=== PATIENT | female | born 1985 | race African-American/Black ===

== ENCOUNTER 2017-03-28 13:59 | Emergency (ER) | payer MEDICAID ==
[~2017-03-28] VITALS: Ht 170.2 cm; Wt 78.0 kg
[~2017-03-28 13:59] MED LIST: IBUP800T24 PO
[2017-03-28 15:10] VITALS: BP 127/74
[2017-03-28] MEDS ORDERED: cefTRIAXone SOD 1,000 MG VL IM ONE (15:45)
[2017-03-28 16:14] LABS: Basophils # (auto) 0.1 uL; Basophils % (auto) 0.6 % (0.0-2.0); Eosinophils # (auto) 0.2 uL; Eosinophils % (auto) 2.7 % (0.0-7.0); Hemoglobin 11.6 g/dL (12.2-16.2); Lymphocytes # (auto) 2.5 uL; Lymphocytes % (auto) 29.3 % (10.0-50.0); Mean Corpuscular Hemoglobin 30.2 pg (28.0-32.0); Mean Corpuscular Volume 91.3 fL (80.0-100.0); Mean Platelet Volume 8.4 fL (6.9-10.8); Monocytes # (auto) 0.7 uL; Monocytes % (auto) 8.3 % (0.0-12.0); Neutrophils % (auto) 59.1 % (37.0-80.0); Platelet Count (auto) 318 10^3/uL (140-450); Red Cell Distribution Width 13.7 % (11.8-14.3); White Blood Cell 8.5 10^3/uL (4.4-10.8)
[2017-03-28 16:34] LABS: Urine Bilirubin Negative (Negative); Urine Blood 3+ /uL (Negative); Urine Color Yellow (Yellow); Urine Glucose Normal (Normal); Urine Ketone Negative (Negative); Urine Mucus FEW (None Seen); Urine Nitrite Negative (Negative); Urine RBC 13 /hpf (0 - 4); Urine Squamous Epithelial Cell FEW /hpf (<5); Urine Urobilinogen Normal (Negative); Urine pH 5.5 (5.0-8.0)
[2017-03-28 16:41] LABS: Albumin 3.8 g/dL (3.4-5.0); BUN/Creatinine Ratio 11.7; Bilirubin, Total 0.3 mg/dL (0.2-1.0); Calcium 8.9 mg/dL (8.5-10.1); Potassium 3.7 mmol/L (3.5-5.1); Total Protein 8.2 g/dL (6.4-8.2)
== END 2017-03-28 17:18 | disposition home or self-care (01) ==
LOC: ER 14:32
DX: S06.9X9A Unspecified intracranial injury with loss of consciousness of unspecified duration, initial encounter (principal); J03.90 Acute tonsillitis, unspecified; N39.0 Urinary tract infection, site not specified; W19.XXXA Unspecified fall, initial encounter; Y93.89 Activity, other specified; Y99.8 Other external cause status; Y92.89 Other specified places as the place of occurrence of the external cause
CPT/HCPCS: 36415; 70450; 80053; 80307; 81001; 81025; 85025; 96372; 99285; J0696

== ENCOUNTER 2017-06-18 12:21 | Emergency (ER) | payer MEDICAID ==
[~2017-06-18] VITALS: Ht 170.2 cm; Wt 81.6 kg
[2017-06-18 14:12] VITALS: BP 108/78
[2017-06-18] MEDS ORDERED: LIDOCAINE 1% HCL (LOCAL ANESTH.) INJ 20ML MDV IN ONE (15:00)
[2017-06-18] MEDS ORDERED: cefTRIAXone SOD 1,000 MG VL ONE (15:06)
[2017-06-18] MEDS ORDERED: cefTRIAXone SOD 1,000 MG VL IM ONE (15:15)
[2017-06-18] MEDS ORDERED: LIDOCAINE 1% HCL (LOCAL ANESTH.) INJ 20ML MDV IJ ONE (15:30)
== END 2017-06-18 15:40 | disposition home or self-care (01) ==
LOC: ER 12:21
DX: L02.416 Cutaneous abscess of left lower limb (principal); Z88.2 Allergy status to sulfonamides; Z79.899 Other long term (current) drug therapy
CPT/HCPCS: 10060; 96372; 99283; J0696

== ENCOUNTER 2018-04-03 05:20 | Emergency (ER) | payer MEDICAID ==
[~2018-04-03] VITALS: Ht 170.2 cm; Wt 83.9 kg
[2018-04-03 05:32] VITALS: BP 114/63
[2018-04-03] MEDS ORDERED: KETOROLAC TROMETH 60MG/2ML VIAL IM ONE (08:00)
== END 2018-04-03 08:12 | disposition home or self-care (01) ==
LOC: ER 05:20
DX: S39.012A Strain of muscle, fascia and tendon of lower back, initial encounter (principal); S46.911A Strain of unspecified muscle, fascia and tendon at shoulder and upper arm level, right arm, initial encounter; S76.011A Strain of muscle, fascia and tendon of right hip, initial encounter; W18.39XA Other fall on same level, initial encounter; Y93.89 Activity, other specified; Y99.8 Other external cause status; Y92.89 Other specified places as the place of occurrence of the external cause
CPT/HCPCS: 72131; 73030; 73700; 96372; 99284; J1885

== ENCOUNTER 2019-06-21 10:22 | Emergency (ER) | payer MEDICAID ==
[~2019-06-21] VITALS: Ht 170.2 cm; Wt 90.7 kg
[2019-06-21 13:43] VITALS: BP 126/84
== END 2019-06-21 13:47 | disposition home or self-care (01) ==
LOC: ER 10:22
DX: J06.9 Acute upper respiratory infection, unspecified (principal); R11.2 Nausea with vomiting, unspecified

== ENCOUNTER 2019-12-06 10:30 | Emergency (ER) | payer MEDICAID ==
[~2019-12-06] VITALS: Ht 170.2 cm; Wt 105.4 kg
[2019-12-06 10:42] VITALS: BP 126/84
[2019-12-06] MEDS ORDERED: KETOROLAC TROMETH 60MG/2ML VIAL IM ONE (11:45)
== END 2019-12-06 11:58 | disposition home or self-care (01) ==
LOC: ER 10:30
DX: S29.012A Strain of muscle and tendon of back wall of thorax, initial encounter (principal); X58.XXXA Exposure to other specified factors, initial encounter; Y93.89 Activity, other specified; Y92.89 Other specified places as the place of occurrence of the external cause; Y99.8 Other external cause status
CPT/HCPCS: 72070; 72100; 96372; 99284; J1885

== ENCOUNTER 2020-08-14 06:26 | Emergency (ER) | payer MEDICAID ==
[~2020-08-14] VITALS: Ht 170.2 cm; Wt 93.4 kg
[~2020-08-14 06:26] MED LIST changes: -IBUP800T24 PO; +IBUP800T27 PO
[2020-08-14] MEDS ORDERED: SODIUM CHLORIDE 0.9% 1,000 ML IV ONE (07:30)
[2020-08-14 07:47] LABS: Basophils # (auto) 0.1 10 ^3/uL (0-0.2); Basophils % (auto) 0.6 % (0.0-2.0); Eosinophils # (auto) 0.3 10 ^3/uL (0-0.8); Eosinophils % (auto) 2.6 % (0.0-7.0); Hematocrit 36.5 % (36.0-46.0); Hemoglobin 12.2 g/dL (12.2-16.2); Lymphocytes # (auto) 1.5 10 ^3/uL (0.4-5.4); Lymphocytes % (auto) 14.4 % (10.0-50.0); Mean Corpuscular Hgb Conc. 33.4 g/dL (32.0-36.0); Mean Corpuscular Volume 89.8 fL (80.0-100.0); Monocytes # (auto) 0.6 10 ^3/uL (0-1.3); Monocytes % (auto) 5.4 % (0.0-12.0); Neutrophils # (auto) 7.9 10 ^3/uL (1.6-8.6); Nucleated Red Blood Cells % 0.2 %; Platelet Count (auto) 334 10^3/uL (140-450); Red Blood Cells 4.07 10^6/uL (4.0-5.20); Red Cell Distribution Width 12.9 % (11.8-14.3); White Blood Cell 10.3 10^3/uL (4.4-10.8)
[2020-08-14 07:58] LABS: Urine Bacteria FEW /hpf (None Seen); Urine Blood Negative /uL (Negative); Urine Specific Gravity 1.002 (1.001-1.035); Urine WBC 2 /hpf (0 - 5)
[2020-08-14 08:07] LABS: Albumin 3.7 g/dL (3.4-5.0); Calcium 8.7 mg/dL (8.5-10.1); Potassium 4.2 mmol/L (3.5-5.1)
[2020-08-14 08:09] LABS: BUN/Creatinine Ratio 11.1
[2020-08-14 08:11] LABS: Bilirubin, Total 0.4 mg/dL (0.2-1.0); Total Protein 7.9 g/dL (6.4-8.2)
[2020-08-14 09:59] VITALS: BP 124/78
== END 2020-08-14 10:50 | disposition home or self-care (01) ==
LOC: ER 06:26
DX: Z34.91 Encounter for supervision of normal pregnancy, unspecified, first trimester (principal); Z3A.09 9 weeks gestation of pregnancy
CPT/HCPCS: 36415; 76805; 80053; 81001; 81025; 84702; 85025; 96360; 99284; J7030

== ENCOUNTER 2020-08-19 22:54 | Emergency (ER) | payer MEDICAID ==
[~2020-08-19] VITALS: Ht 170.2 cm; Wt 97.5 kg
[2020-08-19 23:58] LABS: Urine Bacteria FEW /hpf (None Seen); Urine Blood 1+ /uL (Negative); Urine Specific Gravity 1.011 (1.001-1.035); Urine WBC <1 /hpf (0 - 5)
[2020-08-20 00:05] VITALS: BP 140/75
== END 2020-08-20 03:59 | disposition home or self-care (01) ==
LOC: ER 22:54
DX: O20.8 Other hemorrhage in early pregnancy (principal); Z3A.10 10 weeks gestation of pregnancy
CPT/HCPCS: 36415; 76801; 81001; 81025; 84702

== ENCOUNTER 2025-01-30 08:10 | Inpatient (IN) | payer MEDICAID ==
[~2025-01-30] VITALS: Ht 167.6 cm; Wt 112.0 kg
[~2025-01-30 08:10] MED LIST changes: +IBUP-1456 PO; -IBUP800T27 PO
--- NOTE | 2025-01-30 08:26 | ED.PDOC ---
GI ASSESSMENT HPI Comments 40 year old female presents to the ED with a chief compliant of abdominal pain onset last night. Patient began experiencing lower abdominal pain radiating to back since last night. She describes the pain as sharp and constant, worsens with talking, movement and deep breaths. She is also experiencing intermittent chills, sweats. Denies any PMHx as well as nausea, vomiting, diarrhea, fever, hematemesis, dysuria, hematuria, vaginal discharge. No other symptoms or modifying factors present at this time. Chief Complaint: Abdominal Pain Time Seen by MD: 08:20 Primary Care Provider: DESIRAE Reviewed Notes: Medications, Allergies Allergies: Coded Allergies: Morphine (Verified Allergy, Unknown, 01/30/25) Sulfa Antibiotics (Verified Allergy, Unknown, 01/30/25) Home Meds Reported Medications Ibuprofen (Ibuprofen) 800 Mg Tab, 800 MG PO, MG 12/14/16 Information Source: Patient Mode of Arrival: Ambulatory Timing: Hours Duration: Since onset Prehospital treatment: None Quality: Sharp Vomitus: None Severity: Moderate Recent: None Recent Hx of: None Pain Location: Diffuse Modifying Factors: Nothing Associated sign and symptoms: Abdominal Pain Past Medical History PAST MEDICAL HISTORY: Denies Surgical History: APPLICATIONS TRAINER History: No Pertinent APPLICATIONS TRAINER History Family History Family History: Unknown, Unobtainable Social History Smoker: Non-Smoker Alcohol: Occasionally Drugs: Denies Drug Use Lives In: Home Constitutional: denies: chills, diaphoresis, fatigue, fever, malaise, sweats, weakness, others EENTM: denies: blurred vision, double vision, ear bleeding, ear discharge, ear drainage, ear pain, ear ringing, eye pain, eye redness, hearing loss, mouth pain, mouth swelling, nasal discharge, nose bleeding, nose congestion, nose pain, photophobia, tearing, throat pain, throat swelling, voice changes, others Respiratory: denies: cough, hemoptysis, orthopnea, SOB at rest, shortness of breath, SOB with excertion, stridor, wheezing, others Cardiovascular: denies: chest pain, dizzy spells, diaphoresis, Dyspnea on exertion, edema, irregular heart beat, left arm pain, lightheadedness, palpitations, PND, syncope, others Gastrointestinal: reports: abdominal pain; denies: abdomen distended, blood streaked bowels, constipated, diarrhea, dysphagia, difficulty swallowing, hematemesis, melena, nausea, poor appetite, poor fluid intake, rectal bleeding, rectal pain, vomiting, others Genitourinary: denies: abnormal vagina bleeding, burning, dyspareunia, dysuria, flank pain, frequency, hematuria, incontinence, pain, , vagina discharge, urgency, others Neurological: denies: dizziness, fainting, headache, left sided numbness, left sided weakness, numbness, paresthesia, pre-existing deficit, right sided numbness, right sided weakness, seizure, speech problems, tingling, tremors, weakness, others Musculoskeletal: reports: back pain; denies: gout, joint pain, joint swelling, muscle pain, muscle stiffness, neck pain, others Integumetry: denies: bruises, change in color, change in hair/nails, dryness, laceration, lesions, lumps, rash, wounds, others Allergic/Immunocompromised: denies: Difficulty Healing, Frequent Infections, Hives, Itching, others Hematologic/Lymphatic: denies: anemia, blood clots, easy bleeding, easy bruising, swollen glands, others Endocrine: denies: excessive hunger, excessive sweating, excessive thirst, excessive urination, flushing, intolerance to cold, intolerance to heat, unexplained weight gain, unexplained weight loss, others Psychiatric: denies: anxiety, bipolar disorder, depression, hopeless, panic disorder, schizophrenia, sleepless, suicidal, others All Other Systems: Reviewed and Negative Physical Exam General Appearance: No Apparent Distress, Normal HEENT: Normal ENT Inspection, Pharynx Normal, TMs Normal Neck: Full Range of Motion, Non-Tender, Normal, Normal Inspection Respiratory: Chest Non-Tender, Lungs Clear, No Accessory Muscle Use, No Respiratory Distress, Normal Breath Sounds Cardiovascular: No Edema, No JVD, No Murmur, No Gallop, Normal Peripheral Pulses, Regular Rate/Rhythm Breast Exam: Deferred Gastrointestinal: Diffuse (tenderness), No Organomegaly, Normal Bowel Sounds, Tenderness (diffused) Genitalia: Deferred Pelvic: Deferred Rectal: Deferred Extremities: No calf tenderness, Normal capillary refill, Normal inspection, Normal range of motion, Non-tender, No pedal edema Musculoskeletal : Apperance: Normal Neurologic: Alert, air pumper II-XII nml as Tested, No Motor Deficits, Normal Affect, Normal Mood, No Sensory Deficits Cerebellar Function: Normal Reflexes: Normal Skin: Dry, Normal Color, Warm Lymphatic: No Adenopathy Was a procedure done? Was a procedure done?: No GI differential Dx Differential Diagnosis: Gastroenteritis, UTI, Bacterial X-Ray, Labs, Meds, VS Vital Signs Date Time Temp Pulse Resp B/P (MAP) Pulse Ox O2 Delivery O2 Flow Rate FiO2 01/30/25 08:44 107 18 97 Room Air 01/30/25 08:44 107 16 126/76 (93) 97 01/30/25 08:13 97.8 107 18 121/78 99 97.8 Lab Test 01/30/25 09:30 01/30/25 08:55 Range/Units White Blood Count 13.3 H 4.4-10.8 10^3/uL Red Blood Count 3.86 L 4.0-5.20 10^6/uL Hemoglobin 11.5 L 12.2-16.2 g/dL Hematocrit 34.0 L 36.0-46.0 % Mean Corpuscular Volume 88.2 80.0-100.0 fL Mean Corpuscular Hemoglobin 29.9 28.0-32.0 pg Mean Corpuscular Hemoglobin Concent 33.9 32.0-36.0 g/dL Red Cell Distribution Width 13.6 11.8-14.3 % Platelet Count 320 140-450 10^3/uL Mean Platelet Volume 8.0 6.9-10.8 fL Neutrophils (%) (Auto) 82.6 H 37.0-80.0 % Lymphocytes (%) (Auto) 12.8 10.0-50.0 % Monocytes (%) (Auto) 3.8 0.0-12.0 % Eosinophils (%) (Auto) 0.5 0.0-7.0 % Basophils (%) (Auto) 0.3 0.0-2.0 % Neutrophils # (Auto) 11.0 H 1.6-8.6 10 ^3/uL Lymphocytes # (Auto) 1.7 0.4-5.4 10 ^3/uL Monocytes # (Auto) 0.5 0-1.3 10 ^3/uL Eosinophils # (Auto) 0.1 0-0.8 10 ^3/uL Basophils # (Auto) 0 0-0.2 10 ^3/uL Nucleated Red Blood Cells 0.0 % Sodium Level 135 L 136-145 mmol/L Potassium Level 3.6 3.5-5.1 mmol/L Chloride Level 101 98-107 mmol/L Carbon Dioxide Level 25 20-31 mmol/L Anion Gap 9 5-15 Blood Urea Nitrogen 7 L 9-23 mg/dL Creatinine 0.87 0.550-1.02 mg/dL Glomerular Filtration Rate Calc 87 >90 mL/min BUN/Creatinine Ratio 8.0 L 10.0-20.0 Serum Glucose 134 H 74-106 mg/dL Calcium Level 9.4 8.7-10.4 mg/dL Urine Color Yellow Yellow Urine Clarity Hazy H Clear Urine pH 5.5 5.0-9.0 Urine Specific [place] 1.008 1.001-1.035 Urine Protein Normal Negative Urine Ketones Negative Negative Urine Blood Normal Negative /uL Urine Nitrite Negative Negative Urine Bilirubin Negative Negative Urine Urobilinogen Normal Negative mg/dL Urine Leukocyte Esterase Negative Negative /uL Urine Glucose Normal Normal mg/dL Urine Test Negative Negative Current Medications Medications (Trade) Dose Ordered Sig/Nancy Route Start Time Stop Time Status Last Admin Al Hydrox/Mg Hydrox/Simethicone (Maalox Plus) 15 ml ONCE ONCE PO 01/30/25 08:30 01/30/25 08:31 DC 01/30/25 08:42 Acetaminophen (Tylenol Tablet) 650 mg ONCE ONCE PO 01/30/25 08:30 01/30/25 08:31 DC 01/30/25 08:42 Ondansetron HCl (Zofran Po) 4 mg ONCE ONCE PO 01/30/25 08:30 01/30/25 08:31 DC 01/30/25 08:42 Famotidine (Pepcid Tablet) 20 mg ONCE ONCE PO 01/30/25 08:30 01/30/25 08:31 DC 01/30/25 08:43 Time of 1ST Reevaluation: 08:50 Reevaluation 1ST: Unchanged Patient Education/Counseling: Diagnosis, Treatment, Prognosis Family Education/Counseling: No Family Present SEPSIS Sepsis Screen Date sepsis recognized/suspect: Jan 30, 2025 Time Sepsis recognized/suspect: 812 Recent Procedure: No On Antibiotic Therapy: No Respiratory Rate >20: No Heart Rate >90: Yes Temp<36 C (96.8 F) or >38.3 C: No SBP <90 or MAP <65 mmHG: No New Acute Mental Status Change: No Is the patient on CPAP, BIPAP,: No Physician Orders Ct Ab Pel With Iv Con Only (01/30/25 12:07) Vital Signs Date Time Temp Pulse Resp B/P (MAP) Pulse Ox O2 Delivery O2 Flow Rate FiO2 01/30/25 08:44 107 18 97 Room Air 01/30/25 08:44 107 16 126/76 (93) 97 01/30/25 08:13 97.8 107 18 121/78 99 97.8 Laboratory Tests Test 01/30/25 09:30 White Blood Count 13.3 10^3/uL (4.4-10.8) H Medications Medications Dose Ordered Sig/Nancy Route Start Time Stop Time Status Last Admin Dose Admin Acetaminophen 650 mg ONCE ONCE PO 01/30/25 08:30 01/30/25 08:31 DC 01/30/25 08:42 Al Hydrox/Mg Hydrox/Simethicone 15 ml ONCE ONCE PO 01/30/25 08:30 01/30/25 08:31 DC 01/30/25 08:42 Famotidine 20 mg ONCE ONCE PO 01/30/25 08:30 01/30/25 08:31 DC 01/30/25 08:43 Ondansetron HCl 4 mg ONCE ONCE PO 01/30/25 08:30 01/30/25 08:31 DC 01/30/25 08:42 Departure 1 Departure Time of Disposition: 13:15 (Patient presented with abdominal pain that was concerning for possible appendicits, gastritis, cholecystitis, colitis, gastroenteritis, sbo, or orther possible surgical emergency. Data: 1. I ordered and reviewed the result of at least 3 labs including a CBC, BMP, and Urinalysis. 2. I independently interpreted the following tests: CT Abdomen and Pelvis is concerning for benign abdomen .Risk:This patient has a high risk of morbidity due to further diagnostic testing or treatment and may suffer from an acute abdominal process disorder. Workup reveals intractable abdominal pain and patient should be admitted for further workup. and possible expert consultation. ) Impression: Primary Impression: Intractable abdominal pain Disposition: ADMITTED INPATIENT Admit to: Med Surg Condition: Serious Critical Care Note Critical Care Time?: Yes Critical care comment: Intractable abdominal pain Authorized and Performed by: Melina Lambert MD Total critical care time: Approximately 37 minutes Due to a high probability of clinically significant, life threatening deterioration, the patient required my highest level of preparedness to intervene emergently and I personally spent this critical care time directly and personally managing the patient. This critical care time included obtaining a history; examining the patient; pulse oximetry; ordering and review of studies; arranging urgent treatment with development of a management plan; evaluation of patient's response to treatment; frequent reassessment; and, discussions with other providers. This critical care time was performed to assess and manage the high probability of imminent, life-threatening deterioration that could result in multi-organ failure. It was exclusive of separately billable procedures and treating other patients and teaching time. Please see my other sections and the rest of the note for further information on patient assessment and treatment. Stability Stability form required: No Heart Score Heart Score: Heart Score Response (Comments) Value History N/A 0 EKG N/A 0 Age N/A 0 Risk Factors N/A 0 Troponin N/A 0 Total 0 I personally scribed for MELINA LMABERT MD ([email or web address]) on 01/30/25 at 08:26. Electronically submitted by Ivania Lennon ([email or web address]). MELINA LAMBERT MD Jan 30, 2025 08:26
[2025-01-30] MEDS: ACETAMINOPHEN 325 MG TAB PO ONE (08:42)
[2025-01-30] MEDS: ONDANSETRON ODT 4 MG TAB PO ONE (08:42)
[2025-01-30] MEDS: MAALOX PLUS or MAALOX 30 ML PO ONE (08:42)
[2025-01-30] MEDS: FAMOTIDINE 20 MG TAB PO ONE (08:43)
[2025-01-30 09:18] LABS: Urine Protein, UAD Normal (Negative)
[2025-01-30 09:54] LABS: Hematocrit 34.0 % (36.0-46.0); Hemoglobin 11.5 g/dL (12.2-16.2); Mean Corpuscular Hemoglobin 29.9 pg (28.0-32.0); Mean Corpuscular Volume 88.2 fL (80.0-100.0); Nucleated Red Blood Cells % 0.0 %
[2025-01-30 10:04] LABS: Anion Gap 9 (5-15); Carbon Dioxide 25 mmol/L (20-31); Chloride 101 mmol/L (98-107); Potassium 3.6 mmol/L (3.5-5.1)
[2025-01-30 10:05] LABS: Calcium 9.4 mg/dL (8.7-10.4)
[2025-01-30 10:10] LABS: BUN/Creatinine Ratio 8.0 (10.0-20.0); Blood Urea Nitrogen 7 mg/dL (9-23); Glucose 134 mg/dL (74-106); Sodium 135 mmol/L (136-145)
[2025-01-30] MEDS: SODIUM CHLORIDE 0.9% 1,000 ML IV ONE ×2 (12:00→22:15)
--- NOTE | 2025-01-30 13:03 | DVH ---
CLINICAL HISTORY: rlq pain TECHNIQUE: CT of the abdomen and pelvis was performed with IV contrast. This exam was performed accor ding to our departmental dose optimization program. Up-to-date CT equipment and radiation dose reduct ion techniques are utilized as appropriate. CTDI 26.2 DLP 1263 COMPARISON: None FINDINGS: Abdomen/Pelvis: The spleen, pancreas, adrenal glands, kidneys, gallbladder, liver, uterus, and bladder are unremarkab le. The abdominal aorta is normal in course and caliber. There are no significant atherosclerotic calcifi cations. There is no free intraperitoneal air or fluid. There is no enlarged abdominal or pelvic lymph node. There is no bowel wall thickening or dilatation. The appendix is normal. There is a small fat contain ing umbilical hernia. Other: The imaged lower thorax demonstrate mild linear atelectatic changes at both lung bases. No acute osseous abnormality is evident. IMPRESSION: No acute CT abnormality in the abdomen or pelvis.
[2025-01-30] MEDS: fentaNYL CITRATE 100 MCG/2 ML VL IV ONE (13:15)
[2025-01-30 17:20] VITALS: PULSE 109; RESP 14; O2SAT 96
[2025-01-30] MEDS: ONDANSETRON HCL 4 MG/2 ML VIAL IV ONE (17:25)
[2025-01-30] MEDS: KETOROLAC TROMETH 30 MG/ML 1ML VIAL IV ONE (17:26)
[2025-01-30] MEDS ORDERED: ONDANSETRON HCL 4 MG/2 ML VIAL IV PRN (19:15)
[2025-01-30] MEDS ORDERED: TEMAZEPAM 15 MG CAP PO PRN (19:15)
--- NOTE | 2025-01-30 21:45 | DVHHP2 ---
History of Present Illness Reason for Visit: Abdominal pain History of Present Illness 40 year old female presents for evaluation of abdominal pain. Patient endorses a one day history of lower abdominal pain that radiates to her back. She states the pain has now become intermittent. Also reports intermittent chills. No nausea or vomiting. No diarrhea. Past Medical History Denies Past Surgical History Family History Noncontributory Smoke: No ALCOHOL: none Drugs: None Lives: with Family Review of Systems Review of Systems Review of systems are currently negative otherwise addressed in HPI. Allergies: Coded Allergies: Morphine (Verified Allergy, Unknown, 01/30/25) Sulfa Antibiotics (Verified Allergy, Unknown, 01/30/25) Medications Current Medications Medications Dose Ordered Sig/Nancy Route Start Time Stop Time Status Last Admin Dose Admin Pantoprazole Sodium 40 mg DAILY IV 01/31/25 10:00 Acetaminophen/ Hydrocodone Bitart 1 tab Q4HP PRN PO 01/30/25 19:15 Temazepam 15 mg QHSP PRN PO 01/30/25 19:15 Ondansetron HCl 4 mg Q4HP PRN IV 01/30/25 19:15 Acetaminophen 650 mg Q6HP PRN PO 01/30/25 19:15 Exam Vital Signs Vital Signs Date Time Temp Pulse Resp B/P (MAP) Pulse Ox O2 Delivery O2 Flow Rate FiO2 01/30/25 17:20 99.0 109 14 97/61 (73) 95 99.0 01/30/25 17:20 Room Air* 0 21 Exam Gen: 40-year-old female in mild distress. Skin: Warm, dry, normal color and texture, no rash. HEENT: Normocephalic atraumatic, mucous membranes moist and pink. Neck: Cervical and supraclavicular nodes normal without enlargement, trachea is midline, thyroid gland is normal without masses. Pulmonary: Clear to auscultation and percussion bilaterally. Cardiac: Regular rate and rhythm. No murmur Abdomen: Soft, nontender, nondistended, bowel sounds present all 4 quadrants, no guarding, no rigidity, no organomegaly. Extremities: No cyanosis, clubbing, no edema Neuro: Cranial nerves II through XII grossly intact, normal affect and speech, no focal motor deficits. Labs/Xrays ORDERING PHYSICIAN: MELINA CHRISTY MD PROCEDURE(s): ABPLIV - CT AB PEL WITH IV CON ONLY REASON: rlq pain ORDER NUMBER(s): [id number], ACCESSION NUMBER(s): [id number] CLINICAL HISTORY: rlq pain TECHNIQUE: CT of the abdomen and pelvis was performed with IV contrast. This exam was performed according to our departmental dose optimization program. Up-to-date CT equipment and radiation dose reduction techniques are utilized as appropriate. CTDI 26.2 DLP 1263 COMPARISON: None FINDINGS: Abdomen/Pelvis: The spleen, pancreas, adrenal glands, kidneys, gallbladder, liver, uterus, and bladder are unremarkable. The abdominal aorta is normal in course and caliber. There are no significant atherosclerotic calcifications. There is no free intraperitoneal air or fluid. There is no enlarged abdominal or pelvic lymph node. There is no bowel wall thickening or dilatation. The appendix is normal. There is a small fat containing umbilical hernia. Other: The imaged lower thorax demonstrate mild linear atelectatic changes at both lung bases. No acute osseous abnormality is evident. IMPRESSION: No acute CT abnormality in the abdomen or pelvis. Labs Test 01/30/25 09:30 01/30/25 08:55 Range/Units White Blood Count 13.3 H 4.4-10.8 10^3/uL Red Blood Count 3.86 L 4.0-5.20 10^6/uL Hemoglobin 11.5 L 12.2-16.2 g/dL Hematocrit 34.0 L 36.0-46.0 % Mean Corpuscular Volume 88.2 80.0-100.0 fL Mean Corpuscular Hemoglobin 29.9 28.0-32.0 pg Mean Corpuscular Hemoglobin Concent 33.9 32.0-36.0 g/dL Red Cell Distribution Width 13.6 11.8-14.3 % Platelet Count 320 140-450 10^3/uL Mean Platelet Volume 8.0 6.9-10.8 fL Neutrophils (%) (Auto) 82.6 H 37.0-80.0 % Lymphocytes (%) (Auto) 12.8 10.0-50.0 % Monocytes (%) (Auto) 3.8 0.0-12.0 % Eosinophils (%) (Auto) 0.5 0.0-7.0 % Basophils (%) (Auto) 0.3 0.0-2.0 % Neutrophils # (Auto) 11.0 H 1.6-8.6 10 ^3/uL Lymphocytes # (Auto) 1.7 0.4-5.4 10 ^3/uL Monocytes # (Auto) 0.5 0-1.3 10 ^3/uL Eosinophils # (Auto) 0.1 0-0.8 10 ^3/uL Basophils # (Auto) 0 0-0.2 10 ^3/uL Nucleated Red Blood Cells 0.0 % Sodium Level 135 L 136-145 mmol/L Potassium Level 3.6 3.5-5.1 mmol/L Chloride Level 101 98-107 mmol/L Carbon Dioxide Level 25 20-31 mmol/L Anion Gap 9 5-15 Blood Urea Nitrogen 7 L 9-23 mg/dL Creatinine 0.87 0.550-1.02 mg/dL Glomerular Filtration Rate Calc 87 >90 mL/min BUN/Creatinine Ratio 8.0 L 10.0-20.0 Serum Glucose 134 H 74-106 mg/dL Calcium Level 9.4 8.7-10.4 mg/dL Lipase 34 12-53 U/L Urine Color Yellow Yellow Urine Clarity Hazy H Clear Urine pH 5.5 5.0-9.0 Urine Specific [place] 1.008 1.001-1.035 Urine Protein Normal Negative Urine Ketones Negative Negative Urine Blood Normal Negative /uL Urine Nitrite Negative Negative Urine Bilirubin Negative Negative Urine Urobilinogen Normal Negative mg/dL Urine Leukocyte Esterase Negative Negative /uL Urine Glucose Normal Normal mg/dL Urine Test Negative Negative SEPSIS Sepsis Screen Date sepsis recognized/suspect: Jan 30, 2025 Time Sepsis recognized/suspect: 1719 Recent Procedure: No On Antibiotic Therapy: No Respiratory Rate >20: No Heart Rate >90: Yes Temp<36 C (96.8 F) or >38.3 C: No SBP <90 or MAP <65 mmHG: No New Acute Mental Status Change: No Is the patient on CPAP, BIPAP,: No Physician Orders * Gi Dvh Pricer Bagger (01/30/25 19:03) Sodium Chloride 0.9% (01/30/25 19:15) Basic Metabolic Panel (01/31/25 04:00) Pantoprazole (Protonix) (01/31/25 10:00) Admit (01/30/25 19:07) Hydrocodone-Acet 5/325mg Tab ([place] 5/32 (01/30/25 19:15) Temazepam (Restoril) (01/30/25 19:15) Ondansetron Hcl (Zofran) (01/30/25 19:15) Complete Blood Count (01/31/25 04:00) Condition: Stable (01/30/25 19:07) Acetaminophen Tablet (Tylenol Tablet) (01/30/25 19:15) Clear Liq Diet (01/31/25 Breakfast) Bedrest With Bathroom Privileg (01/30/25 19:07) Vital Signs Date Time Temp Pulse Resp B/P (MAP) Pulse Ox O2 Delivery O2 Flow Rate FiO2 01/30/25 17:20 99.0 109 14 97/61 (73) 95 99.0 01/30/25 17:20 109 14 96 Room Air* 0 21 Medications Medications Dose Ordered Sig/Nancy Route Start Time Stop Time Status Last Admin Dose Admin Ketorolac Tromethamine 15 mg ONCE ONCE IV 01/30/25 12:00 01/30/25 12:01 DC 01/30/25 17:26 15 MG Ondansetron HCl 4 mg ONCE ONCE IV 01/30/25 12:00 01/30/25 12:01 DC 01/30/25 17:25 4 MG Sodium Chloride 1,000 ml @ 1,000 mls/hr Q1H ONCE IV 01/30/25 12:00 01/30/25 12:59 DC 01/30/25 12:00 1,000 MLS/HR Assessment/Plan Assessment/Plan Assessment Acute abdominal pain Obesity Plan Admit the patient to [facility] to the hospitalist GI consultation Clear liquid diet Pain management Continue treatment per orders. Plan discussed with: Patient My Orders Orders - MOISES SPIVEY AGACNCaro Procedure Category Date Status Time * Gi Dvh Pricer Bagger CONS 01/30/25 Transmitted 19:03 Sodium Chloride 0.9% PHA 01/30/25 In Process 19:15 Basic Metabolic Panel LAB 01/31/25 Verified 04:00 Pantoprazole PHA 01/31/25 In Process (Protonix) 10:00 Admit ADMIT 01/30/25 Transmitted 19:07 Hydrocodone-Acet PHA 01/30/25 In Process 5/325mg Tab ([place] 19:15 Temazepam (Restoril) PHA 01/30/25 In Process 19:15 Ondansetron Hcl PHA 01/30/25 In Process (Zofran) 19:15 Complete Blood Count LAB 01/31/25 Verified 04:00 Condition: Stable [place] 01/30/25 In Process 19:07 Acetaminophen Tablet PHA 01/30/25 In Process (Tylenol Tablet) 19:15 Clear Liq Diet DIET 01/31/25 Transmitted Breakfast Bedrest With Bathroom [place] 01/30/25 In Process Privileg 19:07 Date of Service: Jan 30, 2025 Billing Provider: MOISES SPIVEY Common Visit Codes: [id number] INP/OBS CARE (MOD) MOISES SPIVEY Jan 30, 2025 21:44
[2025-01-30 22:01] VITALS: BP 113/68; PULSE 105; RESP 18; TEMP 98.6; O2SAT 98
[2025-01-30] MEDS: PANTOPRAZOLE 40 MG/10 ML VIAL INJ IV ONE (22:15)
[2025-01-30 23:46] VITALS: BP 119/69; PULSE 86; RESP 17; TEMP 98.5; O2SAT 100
[2025-01-31 05:00] VITALS: BP 118/67; PULSE 80; RESP 18; TEMP 98.7; O2SAT 97
[2025-01-31 06:37] LABS: Hematocrit 31.4 % (36.0-46.0); Hemoglobin 10.5 g/dL (12.2-16.2); Mean Corpuscular Hemoglobin 29.4 pg (28.0-32.0); Mean Corpuscular Volume 88.2 fL (80.0-100.0); Nucleated Red Blood Cells % 0.1 %
[2025-01-31 06:43] LABS: Chloride 103 mmol/L (98-107); Sodium 137 mmol/L (136-145)
[2025-01-31 06:44] LABS: Anion Gap 10 (5-15); Carbon Dioxide 24 mmol/L (20-31)
[2025-01-31 06:49] LABS: Calcium 8.7 mg/dL (8.7-10.4); Potassium 3.5 mmol/L (3.5-5.1)
[2025-01-31 06:50] LABS: BUN/Creatinine Ratio 10.0 (10.0-20.0); Blood Urea Nitrogen 8 mg/dL (9-23); Glucose 124 mg/dL (74-106)
[2025-01-31 09:00] VITALS: BP 115/63; PULSE 100; RESP 18; TEMP 98.6; O2SAT 97
[2025-01-31] MEDS: PANTOPRAZOLE 40 MG/10 ML VIAL INJ IV SCH (09:17)
[2025-01-31 12:45] VITALS: BP 120/75; PULSE 95; RESP 17; TEMP 99.2; O2SAT 97
[2025-01-31] MEDS: ACETAMINOPHEN 325 MG TAB PO PRN (13:04)
--- NOTE | 2025-01-31 13:33 | DVHINCON2 ---
GI Consult Consult Note GI consult note Date of Consultation: 01/31/2025 Chief Complaint: Abdominal pain Referring Physician: Fabrice CONTEH H&P: 40-year-old female admitted with complains of abdominal pain, mostly lower abdomen radiating to her back for the past three days. Patient says pain is 10 on a 0-10 scale. Also has some nausea denies vomiting. No hematemesis. Patient feels like she has feverish and has some chills. Regular bowel movement denies melena or red blood in stool slight mucousy stool per patient. No EGD or colonoscopy in past. No history of anemia. Patient says no significant change in her menstrual cycle Past Medical History: Denies Past Surgical History: Social History: NO smoking, drinking ETOH and use of illegal drugs. Family History: Noncontributory Review of Systems: Constitutional: no fever, chill, weight loss HEENT: no eye pain, no hearing loss, no oral lesion, no scleral icterus Heart: no chest pain, no chest pressure Lung: no cough, no dyspnea with exertion Abdomen: see HPI Physical exam: General: NAD, AAOX3 Chest: lung méndez clear to auscultation Heart: RRR, no murmur Abdomen: Moderate epigastric and left upper quadrant tenderness to palpation, +BS Labs: Labs Test 01/31/25 05:54 01/30/25 09:30 01/30/25 08:55 Range/Units White Blood Count 8.9 # 4.4-10.8 10^3/uL Red Blood Count 3.56 L 4.0-5.20 10^6/uL Hemoglobin 10.5 L 12.2-16.2 g/dL Hematocrit 31.4 L 36.0-46.0 % Mean Corpuscular Volume 88.2 80.0-100.0 fL Mean Corpuscular Hemoglobin 29.4 28.0-32.0 pg Mean Corpuscular Hemoglobin Concent 33.3 32.0-36.0 g/dL Red Cell Distribution Width 13.7 11.8-14.3 % Platelet Count 293 140-450 10^3/uL Mean Platelet Volume 8.2 6.9-10.8 fL Neutrophils (%) (Auto) 77.8 37.0-80.0 % Lymphocytes (%) (Auto) 15.2 10.0-50.0 % Monocytes (%) (Auto) 5.6 0.0-12.0 % Eosinophils (%) (Auto) 1.2 0.0-7.0 % Basophils (%) (Auto) 0.2 0.0-2.0 % Neutrophils # (Auto) 7.0 1.6-8.6 10 ^3/uL Lymphocytes # (Auto) 1.4 0.4-5.4 10 ^3/uL Monocytes # (Auto) 0.5 0-1.3 10 ^3/uL Eosinophils # (Auto) 0.1 0-0.8 10 ^3/uL Basophils # (Auto) 0 0-0.2 10 ^3/uL Nucleated Red Blood Cells 0.1 % Sodium Level 137 136-145 mmol/L Potassium Level 3.5 3.5-5.1 mmol/L Chloride Level 103 98-107 mmol/L Carbon Dioxide Level 24 20-31 mmol/L Anion Gap 10 5-15 Blood Urea Nitrogen 8 L 9-23 mg/dL Creatinine 0.80 0.550-1.02 mg/dL Glomerular Filtration Rate Calc 97 >90 mL/min BUN/Creatinine Ratio 10.0 10.0-20.0 Serum Glucose 124 H 74-106 mg/dL Calcium Level 8.7 8.7-10.4 mg/dL Lipase 34 12-53 U/L Urine Color Yellow Yellow Urine Clarity Hazy H Clear Urine pH 5.5 5.0-9.0 Urine Specific [place] 1.008 1.001-1.035 Urine Protein Normal Negative Urine Ketones Negative Negative Urine Blood Normal Negative /uL Urine Nitrite Negative Negative Urine Bilirubin Negative Negative Urine Urobilinogen Normal Negative mg/dL Urine Leukocyte Esterase Negative Negative /uL Urine Glucose Normal Normal mg/dL Urine Test Negative Negative Imaging: CT abdomen pelvis IMPRESSION: No acute CT abnormality in the abdomen or pelvis. Assessment: Abdominal pain Anemia Plan: Discussed with Dr. Juares -possible EGD tomorrow if symptoms persist. Pt was informed of the risks (bleeding, infection, perforation, reaction to sedation medications and cardiopulmonary arrest) and benefit and is agreeable to undergo the procedures. Stool for occult blood NPO after midnight If patient has improvement in his symptoms Outpatient GI follow-up recommended Thank you for this consult Date of Service: Jan 31, 2025 Billing Provider: RITA CARR Common Visit Codes: CONSULT ONLY Consultation Codes: [id number] CONSULT <60MIN RITA CARR Jan 31, 2025 13:33
--- NOTE | 2025-01-31 13:40 | DVHPN2 ---
Reviewed: Care Plan, H&P, Labs, Medications, Previous Orders, Radiology Changes from previous H/P or p: No Changes Objective Vitals Vital Signs Date Time Temp Pulse Resp B/P (MAP) Pulse Ox O2 Delivery O2 Flow Rate FiO2 01/31/25 12:45 99.2 95 17 120/75 (90) 97 99.2 01/30/25 22:01 Room Air* 0 21 Intake/Output Intake and Output 01/31/25 07:00 Intake Total 60 ml Balance 60 ml Intake Oral 60 ml Medications Current Medications Medications Dose Ordered Sig/Nancy Route Start Time Stop Time Status Last Admin Dose Admin Pantoprazole Sodium 40 mg DAILY IV 01/31/25 10:00 01/31/25 09:17 40 MG Acetaminophen/ Hydrocodone Bitart 1 tab Q4HP PRN PO 01/30/25 19:15 Temazepam 15 mg QHSP PRN PO 01/30/25 19:15 Ondansetron HCl 4 mg Q4HP PRN IV 01/30/25 19:15 Acetaminophen 650 mg Q6HP PRN PO 01/30/25 19:15 01/31/25 13:04 650 MG Laboratory Results Laboratory Tests 01/31/25 05:54 Chemistry Test 01/31/25 05:54 Calcium Level 8.7 mg/dL (8.7-10.4) Urinalysis Test 01/30/25 08:55 Urine Color Yellow (Yellow) Urine Clarity Hazy (Clear) H Urine pH 5.5 (5.0-9.0) Urine Specific [place] 1.008 (1.001-1.035) Urine Protein Normal (Negative) Urine Ketones Negative (Negative) Urine Blood Normal /uL (Negative) Urine Nitrite Negative (Negative) Urine Bilirubin Negative (Negative) Urine Urobilinogen Normal mg/dL (Negative) Urine Leukocyte Esterase Negative /uL (Negative) Urine Glucose Normal mg/dL (Normal) Urine Test Negative (Negative) Labs and/or images reviewed: Labs reviewed by me, Image(s) reviewed by me Assessment/Plan Assessment/Plan Acute abdominal pain CBC with a normal limits complete metabolic panel with a normal limits CT abdomen pelvis without contrast negative test negative UTI ruled out Obesity Time spent 35 minutes Plan discussed with: Patient Date of Service: Jan 31, 2025 Billing Provider: ARIAN CARR MD Common Visit Codes: [id number] INP/OBS CARE(LOW) ARIAN CARR MD Jan 31, 2025 13:40
[2025-01-31] MEDS: SODIUM CHLORIDE 0.9% 1,000 ML IV SCH (15:00)
[2025-01-31 15:17] LABS: Alanine Aminotransferase 21.0 U/L (7-40); Albumin 4.3 g/dL (3.2-4.8); Alkaline Phosphatase 59.0 U/L (46-116); Total Protein 7.4 g/dL (5.7-8.2)
[2025-01-31 15:22] LABS: Bilirubin, Direct 0.4 mg/dL (<0.3); Bilirubin, Total 1.3 mg/dL (0.2-1.0)
[2025-01-31 15:38] LABS: INR 1.04 (0.9-1.15); Prothrombin Time 11.0 sec (9.3-11.8)
--- NOTE | 2025-01-31 15:38 | DVH ---
INDICATION: Rule out gallstones TECHNIQUE: Multiple real-time sonographic images were obtained of the right upper quadrant. COMPARISON: None FINDINGS: The liver demonstrates heterogeneous echotexture without focal mass lesions. The liver scout ures 21 cm. There is no intrahepatic or extrahepatic ductal dilatation. The common duct measures 0 .6 mm. The gallbladder is without evidence of stone or sludge. The gallbladder wall measures 0.3mm and is within normal limits. The right kidney measures 12 cm. The right kidney is normal in contour, size, and shape. The echog enicity is normal. There is no hydronephrosis. The pancreas is not well visualized due to overlying bowel gas. IMPRESSION: No sonographic evidence of gallstones or acute cholecystitis. Hepatic steatosis/hepatomegaly
[2025-01-31 16:44] VITALS: BP 114/72; PULSE 94; RESP 18; TEMP 97.9; O2SAT 96
[2025-01-31 21:00] VITALS: BP 121/75; PULSE 102; RESP 18; TEMP 97.9; O2SAT 96
[2025-02-01] VITALS (10 sets, daily range): BP systolic 98–112; BP diastolic 56–75; PULSE 80–109; RESP 13–96; TEMP 97.8–98.8; O2SAT 93–98
[2025-02-01] MEDS: HYDROcodone-ACET 5/325MG TAB PO PRN (00:04)
[2025-02-01 01:57] LABS: INR 1.01 (0.9-1.15); Partial Thromboplastin Time 31.8 SEC (24.5-34.5); Prothrombin Time 10.7 sec (9.3-11.8)
[2025-02-01 05:31] LABS: Hematocrit 29.7 % (36.0-46.0); Hemoglobin 10.0 g/dL (12.2-16.2); Mean Corpuscular Hemoglobin 29.8 pg (28.0-32.0); Mean Corpuscular Volume 88.7 fL (80.0-100.0); Nucleated Red Blood Cells % 0.0 %
[2025-02-01 05:48] LABS: Alanine Aminotransferase 19 U/L (7-40); Albumin 4.0 g/dL (3.2-4.8); Alkaline Phosphatase 55 U/L (46-116); Anion Gap 9 (5-15); Carbon Dioxide 23 mmol/L (20-31); Chloride 106 mmol/L (98-107); Potassium 3.7 mmol/L (3.5-5.1); Sodium 138 mmol/L (136-145); Total Protein 6.8 g/dL (5.7-8.2)
[2025-02-01 05:49] LABS: BUN/Creatinine Ratio 6.9 (10.0-20.0); Bilirubin, Total 1.0 mg/dL (0.2-1.0); Blood Urea Nitrogen < 5 mg/dL (9-23); Calcium 8.3 mg/dL (8.7-10.4); Glucose 111 mg/dL (74-106)
--- NOTE | 2025-02-01 11:13 | DVHPN2 ---
Reviewed: Care Plan, H&P, Labs, Medications, Previous Orders, Radiology Changes from previous H/P or p: No Changes Objective Vitals Vital Signs Date Time Temp Pulse Resp B/P (MAP) Pulse Ox O2 Delivery O2 Flow Rate FiO2 02/01/25 09:23 97.9 87 18 103/66 (78) 98 97.9 02/01/25 08:00 Room Air* 0 21 Intake/Output Intake and Output 02/01/25 07:00 Intake Total 2100 ml Balance 2100 ml Intake Oral 1150 ml IV Total 950 ml # Voids 2 Medications Current Medications Medications Dose Ordered Sig/Nancy Route Start Time Stop Time Status Last Admin Dose Admin Pantoprazole Sodium 40 mg DAILY IV 01/31/25 10:00 02/01/25 07:47 40 MG Acetaminophen/ Hydrocodone Bitart 1 tab Q4HP PRN PO 01/30/25 19:15 02/01/25 00:04 1 TAB Temazepam 15 mg QHSP PRN PO 01/30/25 19:15 Ondansetron HCl 4 mg Q4HP PRN IV 01/30/25 19:15 Acetaminophen 650 mg Q6HP PRN PO 01/30/25 19:15 01/31/25 13:04 650 MG Sodium Chloride 1,000 ml @ 125 mls/hr Q8H IV 01/31/25 14:00 02/01/25 05:46 125 MLS/HR Laboratory Results Laboratory Tests 02/01/25 05:15 Chemistry Test 02/01/25 05:15 Albumin 4.0 g/dL (3.2-4.8) Calcium Level 8.3 mg/dL (8.7-10.4) L Total Protein 6.8 g/dL (5.7-8.2) Coagulation Test 01/31/25 14:48 02/01/25 01:20 Prothrombin Time 11.0 sec (9.3-11.8) 10.7 sec (9.3-11.8) Prothrombin Time INR 1.04 (0.9-1.15) 1.01 (0.9-1.15) Activated Partial Thromboplast Time 31.8 SEC (24.5-34.5) LFT Test 02/01/25 05:15 Alanine Aminotransferase (ALT) 19 U/L (7-40) Alkaline Phosphatase 55 U/L (46-116) Aspartate Amino Transferase (AST) 15 U/L (13-40) Total Bilirubin 1.0 mg/dL (0.2-1.0) Urinalysis Test 01/30/25 08:55 Urine Color Yellow (Yellow) Urine Clarity Hazy (Clear) H Urine pH 5.5 (5.0-9.0) Urine Specific [place] 1.008 (1.001-1.035) Urine Protein Normal (Negative) Urine Ketones Negative (Negative) Urine Blood Normal /uL (Negative) Urine Nitrite Negative (Negative) Urine Bilirubin Negative (Negative) Urine Urobilinogen Normal mg/dL (Negative) Urine Leukocyte Esterase Negative /uL (Negative) Urine Glucose Normal mg/dL (Normal) Urine Test Negative (Negative) Labs and/or images reviewed: Labs reviewed by me, Image(s) reviewed by me Assessment/Plan Assessment/Plan Acute abdominal pain CBC with in normal limits complete metabolic panel within normal limits CT abdomen pelvis without contrast negative test negative UTI ruled out Gallbladder ultrasound negative Obesity Time spent 35 minutes Still complaining of abdominal pain: Consult for GI Dr. Rosa Juares Plan discussed with: Patient My Orders Orders - ARIAN CARR MD Procedure Category Date Status Time Gallbladder US 01/31/25 Resulted 13:51 Sodium Chloride 0.9% PHA 01/31/25 In Process 14:00 Date of Service: Feb 01, 2025 Billing Provider: ARIAN CARR MD Common Visit Codes: [id number] INP/OBS CARE(HIGH) ARIAN CARR MD Feb 01, 2025 11:13
[2025-02-01] MEDS ORDERED: LIDOCAINE VISCOUS 2% 15ML UD ONE (11:18)
[2025-02-01 11:29] LABS: Hepatitis B Surface Antigen Negative (Negative); Hepatitis C Antibody Negative (Negative)
[2025-02-01] MEDS: MIDAZOLAM HCL 5 MG/ML-1ML VIAL ONE (13:06)
[2025-02-01] MEDS: fentaNYL CITRATE 100 MCG/2 ML VL ONE (13:07)
[2025-02-01] MEDS: diphenhdrAMINE HCL 50 MG/1 ML VL ONE (13:08)
--- NOTE | 2025-02-01 13:24 | DVHOP2 ---
Operative Report DATE OF OPERATION: 02/01/25 PROCEDURE: Upper Endoscopy with biopsy. PREOPERATIVE INDICATION: The patient is a 40 -year-old female undergoing endoscopy for abdominal pain POSTOPERATIVE DIAGNOSES: 1. Mild gastroduodenitis 2. 0.5-1 cm sliding-type hiatal hernia PROCEDURE PERFORMED BY: Gibran Juares GI NURSE: Kayy SCOPE: Olympus videoendoscope. ASA CLASS: 2 PREOPERATIVE MEDICATIONS: Versed 4 mg, Fentanyl 100 mcg, Benadryl 50 mg I administered moderate sedation throughout this _8_ minutes procedure. An independent trained observer pushed medications at my direction, and monitored the patient's level of consciousness and physiological status throughout. PROCEDURE IN DETAIL: After obtaining an informed consent, the patient was placed on left lateral decubitus position. The patient was then sedated with the above medications. A bite block was placed between her teeth. The endoscope was then passed through the oropharynx, into the esophagus, and through the stomach and pylorus up to the second and third part of the duodenum. The endoscope was then withdrawn. The 2nd and 3rd part of the duodenum were normal. Duodenal bulb showed mild duodenitis Duodenal biopsies were obtained The pre-pyloric area antrum and body showed mild gastritis. Gastric biopsies were obtained. On retroflexion the fundus cardia and angularis were normal. Endoscope was then withdrawn into distal esophagus Patient had a 0.5-1 cm sliding-type hiatal hernia with no significant erosive esophagitis. The remaining distal and proximal esophagus and oropharynx were unremarkable The patient tolerated the procedure well without difficulty. COMPLICATIONS : None SPECIMENS: Duodenal biopsies Gastric biopsies DISPOSITION: Transfer back to the floor PLAN: 1. Await for biopsy result 2. Will place pt on Protonix 40 mg p.o. daily 3. Bentyl 10 to 20 mg p.o. as needed as needed for abdominal pain 4. Stool softeners for constipation; patient appears stable for discharge from GI point of view 5. Outpatient follow up with me in 4-6 weeks to discuss results and if symptoms persist consider outpatient elective colonoscopy GIBRAN JUARES MD Feb 01, 2025 13:24
[2025-02-01] MEDS: DICYCLOMINE HCL 10 MG CAP PO ONE (19:03)
[2025-02-01] MEDS: DOCUSATE SOD 100 MG CAP PO SCH (21:36)
[2025-02-02 01:00] VITALS: BP 119/71; PULSE 90; RESP 16; TEMP 97.8; O2SAT 94
[2025-02-02 05:00] VITALS: BP 130/70; PULSE 94; RESP 16; TEMP 97.3; O2SAT 99
[2025-02-02 08:43] VITALS: BP 116/68; PULSE 96; RESP 16; TEMP 98.4; O2SAT 96
--- NOTE | 2025-02-02 09:24 | DVHPN2 ---
Progress Note Date Seen: Feb 02, 2025 Resident Creating Document: BRAEDEN ADAMS RESIDENT Medical Necessity Reason Pt with a Central, PICC or Fol: No Subjective Review of Systems patient seen and examined at bedside Notes improvement in abdominal pain Denies any nausea or vomiting Denies any diarrhea Objective vital signs Vital Sign Date Time Temp Pulse Resp B/P (MAP) Pulse Ox O2 Delivery O2 Flow Rate FiO2 02/02/25 08:43 98.4 96 16 116/68 (84) 96 98.4 02/01/25 20:00 Room Air* 0 21 Total Intake and Output 02/01/25 02/01/25 02/02/25 15:00 23:00 07:00 Intake Total 0 ml 400 ml Balance 0 ml 400 ml medications Current Medications Medications Dose Ordered Sig/Nancy Route Start Time Stop Time Status Last Admin Dose Admin Pantoprazole Sodium 40 mg DAILY IV 01/31/25 10:00 02/02/25 08:46 40 MG Acetaminophen/ Hydrocodone Bitart 1 tab Q4HP PRN PO 01/30/25 19:15 02/01/25 19:04 1 TAB Temazepam 15 mg QHSP PRN PO 01/30/25 19:15 Ondansetron HCl 4 mg Q4HP PRN IV 01/30/25 19:15 Acetaminophen 650 mg Q6HP PRN PO 01/30/25 19:15 01/31/25 13:04 650 MG Sodium Chloride 1,000 ml @ 125 mls/hr Q8H IV 01/31/25 14:00 02/02/25 01:05 125 MLS/HR Docusate Sodium 100 mg BID PO 02/01/25 22:00 Examination General Appearance: Cooperative. Well developed. Well nourished. NAD Pulmonary/Respiratory: Equal bilateral air entry Cardiovascular/Chest: Regular rate and rhythm. No murmurs. No JVD. Abdominal Exam: Normal bowel sounds. Soft. normal abdomen, no visible veins, Nontender. No hepatospenomegaly. No masses Ankle Exam: Negative ankle edema Neuro/Mental Status: A&O x4. Coherent. Thoughts/Psych: Normal thought pattern. Appropriate mood and affect. Good judgement and insight Skin Exam: Normal inspection. Normal color. Warm. Dry laboratory and microbiology Laboratory Tests 02/01/25 05:15 Test 02/01/25 05:15 Range/Units Serum Glucose 111 H 74-106 mg/dL Labs and/or images reviewed: Labs reviewed by me, Image(s) reviewed by me Problem List/Assessment/Plan Problem List/Assessment/Plan Acute abdominal pain Gastroduodenitis Hiatal hernia with GERD Plan: Awaiting biopsy results Protonix 40 mg p.o. daily Bentyl 10 mg as needed for abdominal pain Stool softener regimen Follow up with GI in 4-6 weeks to discuss biopsy results Elective colonoscopy to be considered if pain persists Thank you so much for the opportunity to consult on your patient. GI team will follow the patient. In case of any questions or concerns please feel free to reach out. Plan discussed with Dr. Juares Plan discussed with: Patient, Other (RN) BRAEDEN ADAMS RESIDENT Feb 02, 2025 09:24
[2025-02-02] MEDS ORDERED: PANT40T PO (09:55)
[2025-02-02] MEDS ORDERED: DOCU-94 PO (09:55)
[2025-02-02] MEDS ORDERED: DICY10CA PO (09:55)
--- NOTE | 2025-02-02 09:57 | DVHPN2 ---
Reviewed: Care Plan, H&P, Labs, Medications, Previous Orders, Radiology Changes from previous H/P or p: No Changes Objective Vitals Vital Signs Date Time Temp Pulse Resp B/P (MAP) Pulse Ox O2 Delivery O2 Flow Rate FiO2 02/02/25 08:43 98.4 96 16 116/68 (84) 96 98.4 02/01/25 20:00 Room Air* 0 21 Intake/Output Intake and Output 02/02/25 07:00 Intake Total 400 ml Balance 400 ml Intake Oral 400 ml # Voids 2 Medications Current Medications Medications Dose Ordered Sig/Nancy Route Start Time Stop Time Status Last Admin Dose Admin Pantoprazole Sodium 40 mg DAILY IV 01/31/25 10:00 02/02/25 08:46 40 MG Acetaminophen/ Hydrocodone Bitart 1 tab Q4HP PRN PO 01/30/25 19:15 02/01/25 19:04 1 TAB Temazepam 15 mg QHSP PRN PO 01/30/25 19:15 Ondansetron HCl 4 mg Q4HP PRN IV 01/30/25 19:15 Acetaminophen 650 mg Q6HP PRN PO 01/30/25 19:15 01/31/25 13:04 650 MG Sodium Chloride 1,000 ml @ 125 mls/hr Q8H IV 01/31/25 14:00 02/02/25 01:05 125 MLS/HR Docusate Sodium 100 mg BID PO 02/01/25 22:00 Laboratory Results Laboratory Tests 02/01/25 05:15 Urinalysis Test 01/30/25 08:55 Urine Color Yellow (Yellow) Urine Clarity Hazy (Clear) H Urine pH 5.5 (5.0-9.0) Urine Specific [place] 1.008 (1.001-1.035) Urine Protein Normal (Negative) Urine Ketones Negative (Negative) Urine Blood Normal /uL (Negative) Urine Nitrite Negative (Negative) Urine Bilirubin Negative (Negative) Urine Urobilinogen Normal mg/dL (Negative) Urine Leukocyte Esterase Negative /uL (Negative) Urine Glucose Normal mg/dL (Normal) Urine Test Negative (Negative) Labs and/or images reviewed: Labs reviewed by me, Image(s) reviewed by me Assessment/Plan Assessment/Plan Acute abdominal pain CBC with in normal limits complete metabolic panel within normal limits CT abdomen pelvis without contrast negative test negative UTI ruled out Gallbladder ultrasound negative Obesity Mild Gastroduodenitis by EGD by Dr. Rosa Juares: Pantoprazole Bentyl Colace Time spent 35 minutes Still complaining of abdominal pain: Consult for GI Dr. Rosa Juares Cleared for discharge by GI Patient is willing to go home REGAN Muñoz at bedside Plan discussed with: Patient My Orders Orders - ARIAN CARR MD Procedure Category Date Status Time * Gi [facility] CONS 02/01/25 Transmitted 11:07 Date of Service: Feb 02, 2025 Billing Provider: ARIAN CARR MD Common Visit Codes: [id number] INP/OBS CARE(HIGH) ARIAN CARR MD Feb 02, 2025 09:57
--- NOTE | 2025-02-02 10:05 | DVHDS2 ---
Discharge Summary Date of Admission Jan 30, 2025 at 19:07 Date of Discharge: Feb 02, 2025 Admitting Diagnosis Abdominal pain Wounds: EGD Labs/Diagnostic Data: Laboratory Results Test 02/01/25 05:15 02/01/25 01:20 01/31/25 05:54 01/30/25 09:30 White Blood Count 7.3 10^3/uL (4.4-10.8) Red Blood Count 3.35 10^6/uL (4.0-5.20) Hemoglobin 10.0 g/dL (12.2-16.2) Hematocrit 29.7 % (36.0-46.0) Mean Corpuscular Volume 88.7 fL (80.0-100.0) Mean Corpuscular Hemoglobin 29.8 pg (28.0-32.0) Mean Corpuscular Hemoglobin Concent 33.6 g/dL (32.0-36.0) Red Cell Distribution Width 13.4 % (11.8-14.3) Platelet Count 278 10^3/uL (140-450) Mean Platelet Volume 7.8 fL (6.9-10.8) Neutrophils (%) (Auto) 71.3 % (37.0-80.0) Lymphocytes (%) (Auto) 19.7 % (10.0-50.0) Monocytes (%) (Auto) 7.2 % (0.0-12.0) Eosinophils (%) (Auto) 1.6 % (0.0-7.0) Basophils (%) (Auto) 0.2 % (0.0-2.0) Neutrophils # (Auto) 5.2 10 ^3/uL (1.6-8.6) Lymphocytes # (Auto) 1.4 10 ^3/uL (0.4-5.4) Monocytes # (Auto) 0.5 10 ^3/uL (0-1.3) Eosinophils # (Auto) 0.1 10 ^3/uL (0-0.8) Basophils # (Auto) 0 10 ^3/uL (0-0.2) Nucleated Red Blood Cells 0.0 % Sodium Level 138 mmol/L (136-145) Potassium Level 3.7 mmol/L (3.5-5.1) Chloride Level 106 mmol/L (98-107) Carbon Dioxide Level 23 mmol/L (20-31) Anion Gap 9 (5-15) Blood Urea Nitrogen < 5 mg/dL (9-23) Creatinine 0.72 mg/dL (0.550-1.02) Glomerular Filtration Rate Calc 110 mL/min (>90) BUN/Creatinine Ratio 6.9 (10.0-20.0) Serum Glucose 111 mg/dL (74-106) Calcium Level 8.3 mg/dL (8.7-10.4) Total Bilirubin 1.0 mg/dL (0.2-1.0) Aspartate Amino Transferase (AST) 15 U/L (13-40) Alanine Aminotransferase (ALT) 19 U/L (7-40) Alkaline Phosphatase 55 U/L (46-116) Total Protein 6.8 g/dL (5.7-8.2) Albumin 4.0 g/dL (3.2-4.8) Prothrombin Time 10.7 sec (9.3-11.8) Prothrombin Time INR 1.01 (0.9-1.15) Activated Partial Thromboplast Time 31.8 SEC (24.5-34.5) Direct Bilirubin 0.4 mg/dL (<0.3) Hepatitis B Surface Antigen Negative (Negative) Hepatitis C Antibody Negative (Negative) Lipase 34 U/L (12-53) Test 01/30/25 08:55 Urine Color Yellow (Yellow) Urine Clarity Hazy (Clear) Urine pH 5.5 (5.0-9.0) Urine Specific [place] 1.008 (1.001-1.035) Urine Protein Normal (Negative) Urine Ketones Negative (Negative) Urine Blood Normal /uL (Negative) Urine Nitrite Negative (Negative) Urine Bilirubin Negative (Negative) Urine Urobilinogen Normal mg/dL (Negative) Urine Leukocyte Esterase Negative /uL (Negative) Urine Glucose Normal mg/dL (Normal) Urine Test Negative (Negative) Other Laboratory Tests 02/01/25 05:15 Brief Hx & Hospital Course: 40-year-old female came in for abdominal pain. CBC with a normal limits complete metabolic with a normal limits CT abdomen pelvis without contrast negative test negative UTI ruled out gallbladder ultrasound negative underwent EGD by Dr. Rosa Juares found to have mild gastro duodenitis placed on pantoprazole Bentyl and Colace feels better being discharged home. Prescription transmitted to the pharmacy Consults/Reason for consult GI Dr. Rosa Juares Operations or Procedures EGD Condition at Discharge: Fair Final Diagnosis/Problems List Acute abdominal pain CBC with in normal limits complete metabolic panel within normal limits CT abdomen pelvis without contrast negative test negative UTI ruled out Gallbladder ultrasound negative Obesity Mild Gastroduodenitis by EGD by Dr. Rosa Juares: Pantoprazole Bentyl Colace Time spent 35 minutes Still complaining of abdominal pain: Consult for GI Dr. Rosa Juares Discharge Disposition: Home Discharge Instruct/Medications Diet: Regular Activity: Light activity Follow Up/Referral: Use medications as prescribed Follow up with the primary Dr Follow up with GI Dr. Rosa Juares in 10 days Scheduled Docusate Sodium (Colace), 1 CAP PO BID Pantoprazole Sodium Sesquihydr (Pantoprazole Sodium), 40 MG PO BID Scheduled PRN Dicyclomine Hcl (Bentyl Capsule), 1 CAP PO TID PRN Miscellaneous Medications Ibuprofen (Ibuprofen), 800 MG PO, (Reported) Discharge Statement: "Patient was advised to return to the ER or call 911 if any headaches, dizziness, shortness of breath, chest pain, abdominal pain, bleeding, fevers, or worsening of medical condition. Patient was counseled about treatment plan, medications, possible side effects, patientverbalized understanding. All questions were answered to the best of my ability. This discharge took greater then 30 minutes in planning, reviewing documentation, counseling the patient, and discussing with other team members." ASSESSMENT ASSESSMENT Hospital Course Uneventful Assessment Acute abdominal pain CBC with in normal limits complete metabolic panel within normal limits CT abdomen pelvis without contrast negative test negative UTI ruled out Gallbladder ultrasound negative Obesity Mild Gastroduodenitis by EGD by Dr. Rosa Juares: Pantoprazole Bentyl Colace Time spent 35 minutes Still complaining of abdominal pain: Consult for GI Dr. Rosa Juares Date of Service: Feb 02, 2025 Billing Provider: ARIAN CARR MD Common Visit Codes: [id number] DISCH DAY >30min ARIAN CARR MD Feb 02, 2025 10:04
[2025-02-02 11:27] VITALS: BP 116/68; PULSE 96; RESP 16; TEMP 98.4; O2SAT 96
[2025-02-02 12:56] VITALS: BP 117/75; PULSE 94; RESP 16; TEMP 98.2; O2SAT 98
== END 2025-02-02 14:16 | disposition home or self-care (01) | DRG 241 ==
LOC: ER 08:10 → OVERFLOW 19:07 → EAST 23:31
PROVIDERS: ADMIT Family Medicine; ATTEND Family Medicine
PROC: 0DB68ZX Excision of Stomach, Via Natural or Artificial Opening Endoscopic, Diagnostic (ICD-10-PCS; 2025-02-01)
PROC: 0DB98ZX Excision of Duodenum, Via Natural or Artificial Opening Endoscopic, Diagnostic (ICD-10-PCS; principal; 2025-02-01 12:45)
DX: K29.70 Gastritis, unspecified, without bleeding (principal); K29.80 Duodenitis without bleeding; D64.9 Anemia, unspecified; E66.9 Obesity, unspecified; Z68.39 Body mass index [BMI] 39.0-39.9, adult; K29.90 Gastroduodenitis, unspecified, without bleeding; K44.9 Diaphragmatic hernia without obstruction or gangrene; Z88.5 Allergy status to narcotic agent; Z88.2 Allergy status to sulfonamides
CPT/HCPCS: 36415; 43239; 74177; 76705; 80048; 80053; 80076; 81003; 81025; 83690; 85025; 85610; 85730; 86803; 86850; 86900; 86901; 87340; 96361; 96374; 96375; 99291; G0378; J1885; J2250; J2405; J2470; Q0162